=== PATIENT | female | born 1985 | race Caucasian/White ===

== ENCOUNTER 2019-08-24 17:50 | Emergency (ER) | payer OTHER, SELFPAY ==
--- NOTE | 2019-08-24 19:50 | RAD REPORT ---
EXAM DESCRIPTION: CTAbdomen Pelvis W Contrast - 08/24/2019 7:42 pm CLINICAL HISTORY: Abdominal pain. left side abdominal pain COMPARISON: No comparisons TECHNIQUE: Biphasic CT imaging of the abdomen and pelvis was performed with 100 ml non-ionic IV cont rast. All CT scans are performed using dose optimization technique as appropriate and may include automated exposure control or mA/KV adjustment according to patient size. FINDINGS: The lung bases are clear. The liver, spleen, pancreas, adrenal glands and kidneys are within normal limits. No bowel obstruction, free air, free fluid or abscess. Multiple mildly dilated, fluid-filled thickene d small bowel loops are present in the abdomen. The appendix is normal. Left sided lumbar hernia is p resent containing a small section of the descending colon without obstruction. No evidence of signifi cant lymphadenopathy. No suspicious bony findings. IMPRESSION: A moderate nonspecific small bowel enteritis is favored. Inflammatory bowel disease is a nother possibility.
[2019-08-24 19:52] LABS: Absolute Lymphocytes (CBC) 1.1 K/uL (0.7-4.9); Basophils % 0.5 % (0-1.3); Hematocrit 37.9 % (36.0-45.0); Lymphocytes % 7.4 % (15.3-44.8); MPV 9.4 fL (7.6-11.3); RBC Red Blood Cell Count 4.25 M/uL (3.86-4.86)
[2019-08-24] MEDS ORDERED: MORPHINE 4 MG/ML SYR ONE (19:52)
[2019-08-24] MEDS ORDERED: NA CHLORIDE 0.9% 1,000 ML ONE (19:53)
[2019-08-24] MEDS ORDERED: ONDANSETRON 4 MG/2 ML VIAL ONE (19:53)
[2019-08-24 20:04] LABS: ALT/SGPT 28 U/L (12-78); AST/SGOT 33 U/L (15-37); Albumin 3.1 g/dL (3.4-5.0); Alkaline Phosphatase 157 U/L (45-117); BUN Blood Urea Nitrogen 8 mg/dL (7-18); Bicarbonate 25 mmol/L (21-32); Bilirubin Direct 0.1 mg/dL (0-0.2); Bilirubin Total 0.4 mg/dL (0.2-1.0); Glucose Level 290 mg/dL (74-106); Lipase 63 U/L (73-393); Potassium 4.3 mmol/L (3.5-5.1); Sodium Level 135 mmol/L (136-145)
[2019-08-24 20:44] LABS: Urine Blood TRACE (NEG); Urine Glucose 2+ (NEG); Urine Protein NEGATIVE (NEG)
[2019-08-24] MEDS ORDERED: METRONIDAZOLE 500mg IVPB 500 MG/100 ML BAG IV ONE (20:52)
[2019-08-24] MEDS ORDERED: CIPROFLOXACIN HCL 500 MG TAB ONE (20:52)
[2019-08-24 20:57] LABS: Blood Morphology Comment NOT SEEN (NOT SEEN); Platelet Estimate ADEQ; Urine White Blood Cell Casts OK
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
[2019-08-24 22:39] VITALS: TEMP 99.8
[2019-08-24 22:40] VITALS: BP 122/79; O2SAT 95
== END 2019-08-24 21:52 | disposition home or self-care (01) ==
LOC: ER 17:50
DX: A09 Infectious gastroenteritis and colitis, unspecified (principal); E11.65 Type 2 diabetes mellitus with hyperglycemia
CPT/HCPCS: 36415; 74177; 80048; 80076; 81003; 81025; 82565; 83690; 85025; 96361; 96365; 96375; 99284; J2405; J7030; Q9967

== ENCOUNTER 2024-07-31 17:23 | Emergency (ER) | payer SELFPAY ==
[2024-07-31 18:18] LABS: Specific Gravity 1.013 (1.005-1.030); Urine Bilirubin NEGATIVE (Negative); Urine Blood Negative (Negative); Urine Clarity Clear (Clear); Urine Color Colorless (Yellow); Urine Glucose 4+ (Over) (Negative); Urine Ketones NEGATIVE (Negative); Urine Microscopic Reflex YN NO UMIC; Urine Nitrite NEGATIVE (Negative); Urine Protein NEGATIVE (Negative); Urine Urobilinogen Normal (Normal); Urine pH 6.5 (5.0-7.0)
[2024-07-31] MEDS ORDERED: HYDROCODONE/APAP 5/325 MG TAB ONE (19:28)
--- NOTE | 2024-07-31 19:39 | RAD REPORT ---
EXAMINATION: Hip Right 2 View CLINICAL INDICATION: Female, 38 years old. PAIN RIGHT COMPARISON: No prior exam. FINDINGS: No acute fracture. No malalignment/dislocation. Moderate right acetabular degenerative changes. Remote right inferior and superior pubic rami fractur es.. Other: Heterotopic ossification in the soft tissues of the lateral pelvis. IMPRESSION: No acute osseous abnormality.
--- NOTE | 2024-07-31 19:39 | RAD REPORT ---
EXAMINATION: Pelvis CLINICAL INDICATION: Female, 38 years old. TRAUMA COMPARISON: No prior exam. FINDINGS: No acute fracture. Remote right obturator ring fracture. No malalignment/dislocation. No significant focal degenerative change. Other: Heterotopic ossification along the right lateral pelvis. IMPRESSION: No acute osseous abnormality.
[2024-07-31 20:12] LABS: Absolute Basophils 0.2 K/uL (0-0.5); Absolute Eosinophils 0.3 K/uL (0-0.5); Absolute Lymphocytes (CBC) 2.7 K/uL (0.7-4.9); Absolute Monocytes 0.9 K/uL (0.1-1.3); Absolute Neutrophil 7.9 K/uL (1.8-8.0); Basophils % 1.3 % (0-1.3); Eosinophils % 2.9 % (0-4.4); Hematocrit 35.6 % (36.0-45.0); Lymphocytes % 22.6 % (15.3-44.8); MCH 28.8 pg (27.0-35.0); MCHC 33.7 g/dL (32.0-36.0); MCV 85.7 fL (80-100); MPV 8.7 fL (7.6-11.3); Monocytes % 7.5 % (3.3-12.3); Neutrophils % 65.7 % (41.7-73.7); Platelets 398 thou/uL (152-406); RBC Red Blood Cell Count 4.16 M/uL (3.86-4.86); Red Cell Distribution Width 13.3 % (12.1-15.2)
[2024-07-31 20:43] LABS: Albumin 3.4 g/dL (3.4-5.0); Anion Gap 9.1 mEq/L (5.0-15.0); Bilirubin Total 0.2 mg/dL (0.2-1.0); Globulin 3.5 g/dL (2.3-3.5); Protein, Total 6.9 g/dL (6.4-8.2)
[2024-07-31 20:45] LABS: Potassium 4.1 mEq/L (3.5-5.1)
[2024-07-31] MEDS ORDERED: ONDANSETRON 4 MG/2 ML VIAL ONE (20:55)
[2024-07-31] MEDS ORDERED: KETOROLAC 30 MG/ML INJ ONE (20:55)
[2024-07-31] MEDS ORDERED: MORPHINE 2 MG/ML SYR ONE (20:55)
--- NOTE | 2024-07-31 20:57 | ER ---
Nurse's Notes [facility] Name: Kristen Avila Age: 38 yrs Sex: Female : 1985 Arrival Date: 07/31/2024 Time: 17:23 Bed 11 Private MD: Diagnosis: Pain in right hip Presentation: 07/31 17:42 Chief complaint: Patient states: fell on and still having right hip/leg pain. iw Coronavirus screen: At this time, the client does not indicate any symptoms associated with coronavirus-19. Ebola Screen: No symptoms or risks identified at this time. Initial Sepsis Screen: Does the patient meet any 2 criteria? HR > 90 bpm. Does the patient have a suspected source of infection? No. Patient's initial sepsis screen is negative. Risk Assessment: Do you want to hurt yourself or someone else? Patient reports no desire to harm self or others. Onset of symptoms was July 27, 2024. 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 - Infectious Disease History:: Denies. - Social history:: Smoking status: Patient denies any tobacco usage or history of. Screenin:00 [facility] ED Fall Risk Assessment (Adult) History of falling in the last 3 months, rg5 including since admission Yes- single mechanical fall (1 pt) Confusion or Disorientation No (0 pts) Intoxicated or Sedated No (0 pts) Impaired Gait Yes (1 pt) Mobility Assist Device Used Yes (1 pt) Altered Elimination No (0 pt) Score/Fall Risk Level 0 - 2 = Low Risk. Abuse screen: Denies threats or abuse. Nutritional screening: No deficits noted. Tuberculosis screening: No symptoms or risk factors identified. Assessment: 20:00 General: Appears in no apparent distress. comfortable, Behavior is calm, cooperative, rg5 appropriate for age. 20:00 Pain: Complains of pain in right hip and right leg Quality of pain is described as rg5 aching. Neuro: Level of Consciousness is awake, alert, obeys commands. Cardiovascular: Patient's skin is warm and dry. Respiratory: No deficits noted. Breath sounds are clear. GI: No signs and/or symptoms were reported involving the gastrointestinal system. : No signs and/or symptoms were reported regarding the genitourinary system. EENT: No deficits noted. Derm: Skin is intact, Skin is dry, Skin is normal. Musculoskeletal: Circulation, motion, and sensation intact. Range of motion:. Vital Signs: 17:42 BP 149 / 89; Pulse 120; Resp 19; Temp 98.4; Pulse Ox 100% ; Weight 72.57 kg; Height 5 iw ft. 2 in. ; Pain 7/10; 20:00 BP 135 / 79; Pulse 89; Resp 18; Pulse Ox 99% ; Pain 6/10; rg5 17:42 Body Mass Index 29.26 (72.57 kg, 157.48 cm) iw 17:42 Pain Scale: Adult iw 20:00 Pain Scale: Adult rg5 ED Course: 17:31 Patient arrived in ED. iw 17:33 Ambrose Barron FNP-C is PHCP. dr5 17:33 Kevin Sage MD is Attending Physician. dr5 17:44 Triage completed. iw 17:45 Arm band placed on. iw 19:31 Pelvis XRAY In Process Unspecified. EDMS 19:31 Hip Right 2 View XRAY In Process Unspecified. EDMS 20:00 Patient has correct armband on for positive identification. Bed in low position. rg5 Provided Education on: post er care. 20:00 No provider procedures requiring assistance completed. Inserted saline lock: 20 gauge rg5 in right antecubital area, using aseptic technique. Blood collected. Flushed with 10 mL NS 20:16 CMP Sent. hw 21:11 IV discontinued, bleeding controlled, No redness/swelling at site. Pressure dressing rg5 applied. Administered Medications: 19:36 Drug: HYDROcodone-acetaminophen PO 5 mg-325 mg 2 tabs PO once Route: PO; rg5 19:51 Follow up: Response: No adverse reaction; Pain is decreased rg5 21:00 Drug: Ketorolac IVP 15 mg IVP once Route: IVP; Site: right antecubital; rg5 21:00 Drug: morphine IVP or IV 2 mg IVP once over 4 mins Route: IVP; Infused Over: 4 mins; rg5 Site: right antecubital; 21:00 Drug: Ondansetron IVP 4 mg IVP once; over 2 minutes Route: IVP; Site: right antecubital;rg5 Medication: 20:00 VIS not applicable for this client. rg5 Outcome: 20:57 Discharge ordered by . diya 21:11 Discharged to home rg5 21:11 Condition: stable rg5 21:11 Discharge instructions given to patient, Instructed on discharge instructions, follow up and referral plans. Demonstrated understanding of instructions, follow-up care, medications, Prescriptions given X 2, 21:15 Patient left the ED. rg5 Signatures: Dispatcher [employer] [facility] Díaz RN RN iw Ian Sparrow RN RN rg5 Tika Gilbert Dustin, COLLECTOR OF [employer]-C COL[employer]OR [employer]-[facility]5 Corrections: (The following items were deleted from the chart) 17:45 17:42 BP 149 / 89; Pulse 120bpm; Resp 19bpm; Pulse Ox 100%; Temp 98.4F; Pain 7/10, iw Adult; iw
--- NOTE | 2024-07-31 20:57 | EDPHYS ---
Physician Documentation [facility] Name: Kristen Avila Age: 38 yrs Sex: Female : 1985 Arrival Date: 07/31/2024 Time: 17:23 Bed 11 Private MD: ED Physician Kevin Sage HPI: 07/31 17:42 This 38 yrs old Female presents to ER via Unassigned with complaints of Hip dr5 Pain. 17:42 The patient or guardian reports an injury, swelling. Patient reports she fell on right dr5 hip on and the pain is not getting better. . 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 - Infectious Disease History:: Denies. - Social history:: Smoking status: Patient denies any tobacco usage or history of. ROS: 22:51 Constitutional: as per hpi dr5 Exam: 22:51 Constitutional: This is a well developed, well nourished patient who is awake, alert, dr5 and in no acute distress. Head/Face: Normocephalic, atraumatic. Eyes: Pupils equal round and reactive to light, extra-ocular motions intact. Lids and lashes normal. Conjunctiva and sclera are non-icteric and not injected. Cornea within normal limits. Periorbital areas with no swelling, redness, or edema. Neck: Trachea midline, no thyromegaly or masses palpated, and no cervical lymphadenopathy. Supple, full range of motion without nuchal rigidity, or vertebral point tenderness. No Meningismus. Chest/axilla: Normal chest wall appearance and motion. Nontender with no deformity. No lesions are appreciated. Cardiovascular: Regular rate and rhythm with a normal S1 and S2. Normal PMI, no JVD. No pulse deficits. Respiratory: Lungs have equal breath sounds bilaterally, clear to auscultation. No rales, rhonchi or wheezes noted. No increased work of breathing, no retractions or nasal flaring. Back: No spinal tenderness. No costovertebral tenderness. Full range of motion. Skin: Warm, dry with normal turgor. Normal color with no rashes, no lesions, and no evidence of cellulitis. Neuro: Awake and alert, GCS 15, oriented to person, place, time, and situation. Cranial nerves II-XII grossly intact. Motor strength 5/5 in all extremities. Sensory grossly intact. Cerebellar exam normal. Normal gait. 22:51 Musculoskeletal/extremity: Extremities: grossly normal except: noted in the right iliac crest: tenderness, ROM: intact in all extremities, Circulation is intact in all extremities. Sensation intact. Vital Signs: 17:42 BP 149 / 89; Pulse 120; Resp 19; Temp 98.4; Pulse Ox 100% ; Weight 72.57 kg; Height 5 iw ft. 2 in. ; Pain 7/10; 20:00 BP 135 / 79; Pulse 89; Resp 18; Pulse Ox 99% ; Pain 6/10; rg5 17:42 Body Mass Index 29.26 (72.57 kg, 157.48 cm) iw 17:42 Pain Scale: Adult iw 20:00 Pain Scale: Adult rg5 MDM: 17:34 Medical Screening Exam initiated dr5 22:51 Differential diagnosis: hip fracture, bursitis, arthritis, strain. Data reviewed: vital dr5 signs, nurses notes. I considered the following discharge prescriptions or medication management in the emergency department Medications were administered in the Emergency Department. See MAR. Care significantly affected by the following chronic conditions: Diabetes, Hypertension. Care significantly affected by the following Social Determinants of Health: Poor access to healthcare and/or lack of insurance, Poor access to transportation, Problems related to employment. Counseling: I had a detailed discussion with the patient and/or guardian regarding the historical points, exam findings, and any diagnostic results supporting the discharge/admit diagnosis, the presence of at least one elevated blood pressure reading (>120/80) during this emergency department visit, lab results, radiology results, the need for outpatient follow up, for definitive care, a family practitioner, to return to the emergency department if symptoms worsen or persist or if there are any questions or concerns that arise at home. Medication response: morphine relieved the patient's pain. Symptoms have resolved, acetaminophen administration has lowered the patient's temperature. Response to treatment: the patient's symptoms have resolved after treatment. ED course: Patient feels much better. Printed out results and discussed with patient. No acute abnormalities noted but we did discuss old fractures from previous fall. Will have patient follow primary care doctor this next week. Lab work also printed out and discussed getting blood sugars down. Strict ER precautions given. 07/31 17:45 Order name: Urinalysis w/ reflexes; Complete Time: 18:21 dr5 07/31 17:45 Order name: Test, Urine; Complete Time: 18:21 dr5 07/31 18:21 Order name: CBC with Diff; Complete Time: 20:15 dr5 07/31 18:21 Order name: CMP; Complete Time: 20:48 dr5 07/31 17:45 Order name: Pelvis XRAY; Complete Time: 20:15 dr5 07/31 17:45 Order name: Hip Right 2 View XRAY; Complete Time: 20:15 dr5 Administered Medications: 19:36 Drug: HYDROcodone-acetaminophen PO 5 mg-325 mg 2 tabs PO once Route: PO; rg5 19:51 Follow up: Response: No adverse reaction; Pain is decreased rg5 21:00 Drug: Ketorolac IVP 15 mg IVP once Route: IVP; Site: right antecubital; rg5 21:00 Drug: morphine IVP or IV 2 mg IVP once over 4 mins Route: IVP; Infused Over: 4 mins; rg5 Site: right antecubital; 21:00 Drug: Ondansetron IVP 4 mg IVP once; over 2 minutes Route: IVP; Site: right antecubital;rg5 Disposition Summary: 07/31/24 20:57 Discharge Ordered Notes: Location: Home dr5 Condition: Stable dr5 Diagnosis - Pain in right hip dr5 Followup: dr5 - With: Emergency Department - When: As needed - Reason: Worsening of condition Followup: dr5 - With: Private Physician - When: 1 - 2 days - Reason: Recheck today's complaints, Continuance of care, Re-evaluation by your physician Discharge Instructions: - Discharge Summary Sheet dr5 - Joint Pain dr5 - Opioid Pain Medicine Management dr5 Forms: - Medication Reconciliation Form dr5 - Patient Portal Instructions dr5 - Leadership Thank You Letter dr5 Prescriptions: - Zofran 4 mg Oral Tablet - take 1 tablet ORAL route every 12 hours As needed; 20 tablet; Refills: 0, dr5 Product Selection Permitted - Tramadol 50 mg Oral Tablet - take 1 tablet ORAL route every 8 hours as needed; 12 tablet; Refills: 0, dr5 Product Selection Permitted Addendum: 08/02/2024 09:07 Co-signature as Attending Physician, Kevin LANDRY I reviewed the patient's care r n provided by the Advanced Practice Provider and agree with the diagnosis and treatment plan. Signatures: Dispatcher [employer] Spring Williamson, RN Kevin Polanco MD MD rn Gallardo, Rommel, RN RN rg5 Ambrose Barron, JEWELRY RACKER-C JEWELRY RACKER-Cdr5
[2024-08-02 23:31] VITALS: TEMP 98.4
[2024-08-02 23:33] VITALS: BP 135/79; O2SAT 99
== END 2024-07-31 21:15 | disposition home or self-care (01) ==
LOC: ER 17:23
DX: M25.551 Pain in right hip (principal)
CPT/HCPCS: 36415; 72170; 80053; 81003; 81025; 85025; 96374; 96375; 99284; J2270; J2405